=== PATIENT | female | born 1975 | race Caucasian/White ===

== ENCOUNTER 2022-07-09 09:27 | Emergency (ER) | payer MEDICAID ==
[~2022-07-09] VITALS: Ht 165.1 cm; Wt 136.1 kg
--- NOTE | 2022-07-09 09:57 | NUR ---
Awake/Alert was able to verify name with medics BUT refusing to answer any other questions. Able to track movements/looks at others . Able to move extremities purposefully. +Psoriasis all over the face and body
[2022-07-09 10:26] LABS: BASOPHILS % (AUTO) 0.2 % (0.0-2.0); EOSINOPHILS % (AUTO) 0.4 % (0.0-6.0); HEMATOCRIT 38 % (33-45); HEMOGLOBIN 12.4 g/dL (11.5-14.8); LYMPHOCYTES # (AUTO) 1.3 K/uL (0.8-4.8); LYMPHOCYTES % (AUTO) 11.6 % (20.0-44.0); MEAN CORPUSCULAR HGB CONC 33 g/dl (31.0-36.0); MEAN CORPUSCULAR VOLUME 88 fL (82-100); MONOCYTES # (AUTO) 1.2 K/uL (0.1-1.30); NEUTROPHILS # (AUTO) 8.7 K/uL (1.8-8.9); NEUTROPHILS % (AUTO) 76.8 % (43.0-81.0); PLATELET COUNT (AUTO) 175 K/uL (150-450); WHITE BLOOD COUNT (AUTO) 11.3 K/uL (4.3-11.0)
[2022-07-09 10:45] LABS: ALANINE AMINOTRANSFERASE 10 U/L (12-78); ALBUMIN 2.3 g/dL (3.4-5.0); ALCOHOL, BLOOD < 3 mg/dL (0-0); ALKALINE PHOSPHATASE 67 U/L (46-116); ASPARTATE AMINOTRANSFERASE 23 U/L (15-37); BILIRUBIN,DIRECT 0.1 mg/dL (0.0-0.2); BILIRUBIN,TOTAL 0.4 mg/dL (0.2-1.0); TOTAL PROTEIN, SERUM 7.6 g/dL (6.4-8.2)
[2022-07-09 10:53] LABS: THYROID STIMULATING HORMONE 6.805 uIU/mL (0.358-3.74)
--- NOTE | 2022-07-09 10:57 | NUR ---
[facility]STER CALLED AND LEFT CONTACT # [phone]
[2022-07-09 11:00] LABS: CALCIUM, SERUM 8.4 mg/dL (8.5-10.1); CARBON DIOXIDE 32 mmol/L (21-32); CHLORIDE 101 mmol/L (98-107); CREATININE 0.9 mg/dL (0.6-1.3); GLUCOSE 87 mg/dL (74-106); POTASSIUM 3.4 mmol/L (3.5-5.1); SODIUM SERUM 135 mmol/L (136-145); UREA NITROGEN, BLOOD 11 mg/dL (7-18)
[2022-07-09 11:06] LABS: ACETAMINOPHEN 0 ug/ml (10-30)
--- NOTE | 2022-07-09 11:47 | NUR ---
URINE SAMPLE SENT TO LAB
[2022-07-09 12:18] LABS: BILIRUBIN,URINE SMALL (NEGATIVE); COLOR,URINE YELLOW (YELLOW); LEUKOCYTE ESTERASE ,URINE TRACE (NEGATIVE); NITRITE, URINE NEGATIVE (NEGATIVE); PROTEIN,URINE 100 mg/dl (NEGATIVE); UGLUCOSE NEGATIVE (NEGATIVE)
[2022-07-09 12:37] LABS: BACTERIA,URINE Many /HPF (None Seen); SQUAMOUS EPITHELIAL CELL,UR 0-2 /HPF (None Seen)
--- NOTE | 2022-07-09 13:12 | NUR ---
CALLED SHAYLEE HUTSON WILL CALL US BACK ABOUT TAKING PT BACK TO FACILITY [phone]
--- NOTE | 2022-07-09 14:00 | NUR ---
DENEEN MENDEZ PT AND SENT
--- NOTE | 2022-07-09 15:27 | NUR ---
FAXED CLINICALS TO [facility] INTAKE.
--- NOTE | 2022-07-09 15:56 | NUR ---
PATIENT IS ABLE TO AMBULATE, HELP HERSELF DRINK WATER.
--- NOTE | 2022-07-09 16:01 | NUR ---
[facility] CALLED FOR TRANSPORT ETA 45 MINS PER KINDRA.
--- NOTE | 2022-07-09 16:50 | NUR ---
PT DISCHARGED BACK TO SNF ([facility]) IN STABLE CONDITION VIA PRIVATE AMBULANCE.
[2022-07-09 16:51] VITALS: BP 121/80
== END 2022-07-09 16:52 ==
LOC: ER 09:30
DX: R46.2 Strange and inexplicable behavior (principal); Z20.822 Contact with and (suspected) exposure to COVID-19; F32.A Depression, unspecified; L40.9 Psoriasis, unspecified; I10 Essential (primary) hypertension; Z85.6 Personal history of leukemia; E03.8 Other specified hypothyroidism
CPT/HCPCS: 99284; 70450; 85025; 80048; 87086; 80076; 81001; 36415; 84439; 84443; 84481; 87426; 80143; 80320; 80307; C9803; G0480